=== PATIENT | female | born 1995 | race Caucasian/White ===

== ENCOUNTER 2019-02-20 02:16 | Inpatient (IN) | payer BC ==
[~2019-02-20] VITALS: Ht 165.1 cm; Wt 55.4 kg
--- NOTE | 2019-02-20 02:30 | NUR ---
ED Nurse Note: Pt walked into ED C/O Lower right abd pain 6/10 since 8 hours ago. pt is currently on menstual cycle. vomited x1 @ 30 min ago. ao4. nad. vss
--- NOTE | 2019-02-20 02:45 | NUR ---
ED Nurse Note: iv access established. blood and urine collected; sent down to lab.
[2019-02-20 02:55] LABS: BASOPHILS % (AUTO) 0.5 % (0.0-2.0); EOSINOPHILS % (AUTO) 0.5 % (0.0-3.0); HEMATOCRIT 42.3 % (37.0-47.0); MEAN CORPUSCULAR VOLUME 79 FL (80-99); PLATELET COUNT 282 K/UL (150-450); RED BLOOD COUNT 5.33 M/UL (4.20-5.40); RED CELL DISTRIBUTION WIDTH 10.7 % (11.6-14.8); WHITE BLOOD COUNT 10.7 K/UL (4.8-10.8)
[2019-02-20 02:57] VITALS: BP 115/77
[2019-02-20] MEDS ORDERED: Omnipaque-300 100ml vial INJ PRN (03:00)
[2019-02-20] MEDS ORDERED: Morphine Sulfate 4mg/ml Inj (IV USE ONLY) IVP ONE (03:00)
[2019-02-20 03:04] LABS: APPEARANCE,URINE SLIGHTLY CLOUDY; BILIRUBIN, URINE NEGATIVE (NEGATIVE); COLOR,URINE PALE YELLOW; GLUCOSE, URINE (UA) NEGATIVE (NEGATIVE); KETONES,URINE NEGATIVE (NEGATIVE); LEUKOCYTE ESTERASE ,URINE NEGATIVE (NEGATIVE); NITRITE,URINE NEGATIVE (NEGATIVE); PH,URINE 8 (4.5-8.0); PROTEIN,URINE NEGATIVE (NEGATIVE); UROBILINOGEN,URINE NORMAL MG/DL (0.0-1.0)
--- NOTE | 2019-02-20 03:07 | Emergency Room Report ---
History of Present Illness General Chief Complaint: Abdominal Pain Source: Patient Present Illness HPI Patient presents with complaints of right lower abdominal pain Triage notes 8 hours prior to arrival however patient is confirming that the pain started about 2 hours ago She had episode of vomiting as well reports that she is also on her menstrual cycle Denies any fevers denies any upper abdominal pain denies any previous abdominal surgeries denies any flank pain denies any dysuria frequency Patient was concerned about her appendix Allergies: Coded Allergies: No Known Allergies (Unverified , 02/20/19) Patient History Past Medical History: see triage record Last Menstrual Period: Current, started 02/19 Now: No : 0 Reviewed Nursing Documentation: PMH: Agreed; PSxH: Agreed Nursing Documentation-PMH Past Medical History: No Stated History Review of Systems All Other Systems: negative except mentioned in HPI Physical Exam Vital Signs Date Time Temp Pulse Resp B/P (MAP) Pulse Ox O2 Delivery O2 Flow Rate FiO2 02/20/19 02:27 98.2 84 20 115/77 (90) 98 Room Air Sp02 EP Interpretation: reviewed, normal General Appearance: mild distress - Appears uncomfortable in pain Head: normocephalic, atraumatic Eyes: bilateral eye PERRL, bilateral eye EOMI ENT: hearing grossly normal, normal pharynx, TMs + canals normal, uvula midline Neck: full range of motion, supple, no meningismus, no bony tend Respiratory: lungs clear, normal breath sounds, no rhonchi, no respiratory distress, no retraction, no accessory muscle use Cardiovascular #1: normal peripheral pulses, regular rate, rhythm, no edema, no gallop, no JVD, no murmur Gastrointestinal: normal bowel sounds, soft, no mass, no organomegaly, non- distended, no guarding, no hernia, no pulsatile mass, no rebound, tenderness - Palpable over the right lower quadrant however patient also has some discomfort in the right inguinal and suprapubic area as well Genitourinary: no CVA tenderness Musculoskeletal: normal inspection Neurologic: oriented x3, responsive, terra cotta setter III-XII nml as tested, motor strength/ tone normal, sensory intact Psychiatric: mood/affect normal Skin: no rash Lymphatic: normal inspection, no adenopathy Medical Decision Making Diagnostic Impression: Primary Impression: Appendicitis Additional Impression: Abdominal pain ER Course With the patient's history and examination, multiple differentials considered, including but not limited to , ectopic , ovarian torsion, gastritis, cholecystitis, pancreatitis, appendicitis Patient's initial work-up reveals a normal CBC count given the initial presentation ultrasound was obtained emergently The non destructive testing technician reported positive blood flow to both ovaries we are pending final dictation by radiology CAT scan reports that the appendix is enlarged at 7.5 mm they do not appreciate any obvious inflammatory changes There is also report of correlation for PID also fluid collection mass in the right adnexa Patient is not sexually active she is also currently on her menstrual cycle denies any fevers and denies any vaginal discharge Given these multiple findings patient does feel somewhat better however early appendicitis cannot be ruled out especially given the patient's early presentation after a few hours of onset Given these findings patient is admitted for further surgical consultation observation and inpatient care Labs Test 02/20/19 02:45 White Blood Count 10.7 K/UL (4.8-10.8) Red Blood Count 5.33 M/UL (4.20-5.40) Hemoglobin 14.0 G/DL (12.0-16.0) Hematocrit 42.3 % (37.0-47.0) Mean Corpuscular Volume 79 FL (80-99) Mean Corpuscular Hemoglobin 26.3 PG (27.0-31.0) Mean Corpuscular Hemoglobin Concent 33.1 G/DL (32.0-36.0) Red Cell Distribution Width 10.7 % (11.6-14.8) Platelet Count 282 K/UL (150-450) Mean Platelet Volume 6.2 FL (6.5-10.1) Neutrophils (%) (Auto) 64.0 % (45.0-75.0) Lymphocytes (%) (Auto) 26.0 % (20.0-45.0) Monocytes (%) (Auto) 9.0 % (1.0-10.0) Eosinophils (%) (Auto) 0.5 % (0.0-3.0) Basophils (%) (Auto) 0.5 % (0.0-2.0) Urine Color Pale yellow Urine Appearance Slightly cloudy Urine pH 8 (4.5-8.0) Urine Specific [place] 1.015 (1.005-1.035) Urine Protein Negative (NEGATIVE) Urine Glucose (UA) Negative (NEGATIVE) Urine Ketones Negative (NEGATIVE) Urine Blood 2+ (NEGATIVE) Urine Nitrite Negative (NEGATIVE) Urine Bilirubin Negative (NEGATIVE) Urine Urobilinogen Normal MG/DL (0.0-1.0) Urine Leukocyte Esterase Negative (NEGATIVE) Urine RBC 5-10 /HPF (0 - 2) Urine WBC 0-2 /HPF (0 - 2) Urine Squamous Epithelial Cells Few /LPF (NONE/OCC) Urine Amorphous Sediment Many /LPF (NONE) Urine Bacteria Moderate /HPF (NONE) Urine HCG, Qualitative Negative (NEGATIVE) Sodium Level 141 MMOL/L (136-145) Potassium Level 3.3 MMOL/L (3.5-5.1) Chloride Level 105 MMOL/L (98-107) Carbon Dioxide Level 29 MMOL/L (21-32) Anion Gap 8 mmol/L (5-15) Blood Urea Nitrogen 10 mg/dL (7-18) Creatinine 0.7 MG/DL (0.55-1.30) Estimat Glomerular Filtration Rate > 60 mL/min (>60) Glucose Level 104 MG/DL (74-106) Calcium Level 8.4 MG/DL (8.5-10.1) Total Bilirubin 0.3 MG/DL (0.2-1.0) Aspartate Amino Transf (AST/SGOT) 13 U/L (15-37) Alanine Aminotransferase (ALT/SGPT) 16 U/L (12-78) Alkaline Phosphatase 75 U/L (46-116) Total Protein 7.2 G/DL (6.4-8.2) Albumin 3.8 G/DL (3.4-5.0) Globulin 3.4 g/dL Albumin/Globulin Ratio 1.1 (1.0-2.7) Lipase 125 U/L (73-393) Rhythm Strip Diag. Results EP Interpretation: yes Rate: 77 Rhythm: NSR, no PVC's, no ectopy CT/MRI/US Diagnostic Results CT/MRI/US Diagnostic Results : Impression Pelvic ultrasound: Preliminary report states flow to both ovaries CT abdomen pelvis: Refer to report for full specifics however they report appendix enlarged at 7.5 mm, multi-fluid collection right adnexa evaluate for PID Last Vital Signs Date Time Temp Pulse Resp B/P (MAP) Pulse Ox O2 Delivery O2 Flow Rate FiO2 02/20/19 02:57 98.2 84 20 115/77 98 Room Air Status: improved Disposition: ADMITTED INPATIENT Condition: Serious Referrals: NOT CHOSEN IPA/,REFERRING (PCP) Paulette Bush DO Feb 20, 2019 03:07
[2019-02-20 03:08] LABS: ANION GAP 8 mmol/L (5-15); BLOOD UREA NITROGEN 10 mg/dL (7-18); CALCIUM 8.4 MG/DL (8.5-10.1); CARBON DIOXIDE 29 MMOL/L (21-32); CHLORIDE 105 MMOL/L (98-107); CREATININE 0.7 MG/DL (0.55-1.30); POTASSIUM 3.3 MMOL/L (3.5-5.1); SODIUM 141 MMOL/L (136-145)
[2019-02-20 03:13] LABS: ALANINE AMINOTRANSFERASE 16 U/L (12-78); ALBUMIN 3.8 G/DL (3.4-5.0); ALBUMIN/GLOBULIN RATIO 1.1 (1.0-2.7); ALKALINE PHOSPHATASE 75 U/L (46-116); ASPARTATE AMINO TRANSFERASE 13 U/L (15-37); BILIRUBIN,TOTAL 0.3 MG/DL (0.2-1.0)
--- NOTE | 2019-02-20 03:13 | NUR ---
ED Nurse Note: pt medicated; tolerated well. pt down to us with us tech.
--- NOTE | 2019-02-20 04:30 | NUR ---
ED Nurse Note: pt returned from imaging. nad. vss. reports relief from pain after medication. assisted to vane. repositioned for comfort.
--- NOTE | 2019-02-20 04:38 | NUR ---
ED Nurse Note: patient ambulated to bathroom with steady gait.
--- NOTE | 2019-02-20 04:51 | Diagnostic Imaging Report ---
Indication: Abdominal pain Technique: Continuous helical transaxial imaging of the abdomen and pelvis was obtained from the lung bases to the pubic symphysis during intravenous contrast administration. Coronal 2-D reformats were also obtained. Study obtained in a Siemens sensation [address] Automatic Exposure Control was utilized. Total Dose length Product (DLP): 617.[address] Dose Index Volume (CTDIvol): 11.6 mGy Comparison: None Findings: The lung bases are clear. The liver and spleen, kidneys and adrenal glands, gallbladder and pancreas appear unremarkable. There is no evidence of bowel obstruction. There is no abscess or significant free fluid identified. The uterus is present. Both ovaries are demonstrated. There is the suggestion of multiple follicles within both ovaries, which have been confirmed by ultrasound. There is a suggestion of a dominant right ovarian cyst measuring 2.3 x 1.6 cm. In addition the ovaries are prominent size. Urinary bladder is unremarkable. The appendix is normal with the air-filled lumen seen at the level of the right kidney. IMPRESSION: No acute findings. Normal appendix. Enlarged ovaries. Please refer to the pelvic ultrasound report. Evaluation was subsequently obtained. The CT scanner at [facility] is accredited by the [employer] and the scans are performed using dose optimization techniques as appropriate to a performed exam including Automatic Exposure control.
[2019-02-20 05:00] VITALS: BP 122/77
--- NOTE | 2019-02-20 05:25 | NUR ---
TRANSFER TO FLOOR: Patient transferred to MED SURG 416-1 as ordered, per MD LYNN. Report given to AUSTIN ARANDA. PATIENT IN STABLE CONDITION. BELONGINGS LIST COMPLETED WITH RECEIVING RN. PT TRANSFERRED TO FLOOR WITH ALL BELONGINGS VIA WHEELCHAIR WITH UX CONSULTANT.
--- NOTE | 2019-02-20 05:55 | NUR ---
NURSE NOTES: Admitted a 23 year old female, alert and oriented x4, ambulatory but came on the floor on wheelchair assisted by architectural technologist. IN pain of 09/18. Will contact MD for admission orders. Belongings checked. Oriented to room. Vital signs taken and recorded. Skin intact. Bed in lowest and lock engaged.
--- NOTE | 2019-02-20 06:49 | Diagnostic Imaging Report ---
Indication:Lower abdominal and pelvic pain Technique: Grayscale and duplex Doppler imaging of the pelvis performed utilizing a transabdominal and endovaginal scan. Comparison: None Findings: The uterus appears normal measuring 7.4 x 4.8 x 3.3 cm with the endometrium is about 5.5 mm in thickness. There is a mild amount of free fluid. The right ovary is enlarged measuring 5.5 x 3.5 x 3.4 cm for a total volume of approximately 30 cc. The left ovary is slightly prominent as well measuring 4.8 x 2.4 x 2.3 cm for volume of 14 cc. There are multiple small follicles within both ovaries. IMPRESSION: Prominent ovaries with the multiple small follicles suggestive of polycystic ovarian syndrome, which is mostly a clinical diagnosis. Clinical evaluation and correlation recommended.
[2019-02-20] MEDS: Piperacillin/Tazobactam 3.375 GM in NS 110 ML IVPB SCH ×3 (06:50→21:48)
--- NOTE | 2019-02-20 07:41 | NUR ---
HAND-OFF: Report given to ROSI Garcia.
[2019-02-20 07:59] VITALS: BP 96/55
[2019-02-20] MEDS: HYDROmorphone 1mg/ml Carpuject IVP PRN ×3 (08:06→20:17)
[2019-02-20] MEDS: Heparin 5000 units/ml inj SUBQ SCH ×2 (08:14→20:15)
[2019-02-20] MEDS: Pantoprazole Inj IVP SCH (08:14)
--- NOTE | 2019-02-20 08:30 | NUR ---
NURSE NOTES: PT AXOX4, CALM, RESTING IN BED. PT WAS GIVEN PRN DILAUDID ORDERED FOR SEVERE PAIN OF ABDOMEN. RN EDUCATED PT WAITING FOR DR BOO AND /ENTERTAINMENT REPORTER CONSULT. PT VERBALIZED UNDERSTANDING. PT EDUCATED ON FALL/SAFETY PRECAUTIONS. PT EDUCATED TO USE CALL LIGHT FOR ANY ASSISTANCE AND DO NOT WALK WHEN DIZZY. PT VERBALIZED UNDERSTANDING. WILL CONTINUE TO MONITOR.
--- NOTE | 2019-02-20 10:40 | NUR ---
*-* NO INSURANCE INFORMATION IN THE BAR UNABLE TO SEND CLINICALS OR REVIEWS *-*
[2019-02-20] MEDS: Doxycycline Monohydrate 100mg ORAL SCH ×2 (11:01→20:18)
[2019-02-20] MEDS: LORazepam Inj 2mg/ml 1ml IV PRN (11:01)
[2019-02-20] MEDS: Flonase Nasal Inhaler 16gm NASAL SCH (11:01)
[2019-02-20 11:44] VITALS: BP 92/49
--- NOTE | 2019-02-20 13:09 | NUR ---
*-* INSURANCE *-* ALL CLINICALS HAVE BEEN FAXED TO: Ref#[id number]
--- NOTE | 2019-02-20 13:54 | NUR ---
CASE MANAGEMENT:REVIEW 23YR OLD FEMALE WALKED IN TO OUR ER CC; ABDOMINAL PAIN. VOMITED X1 SI: POSSIBLE APPENDICITIS 98.3 84 20 115/77 98% ON RA WBC+10.7 K-3.3 IS;1L NS BOLUS X2 IV MORPHINE X2 IV ZOFRAN X2 URINE CX CT ABD/PELVIS US PELVIS URINE CX : TO MED/SURG [facility]
--- NOTE | 2019-02-20 14:45 | History and Physical Report ---
DATE OF ADMISSION: 02/20/2019 CHIEF COMPLAINT: Abdominal pain. HISTORY OF PRESENT ILLNESS: The patient is a 23-year-old female with no past medical history presented with complaints of sudden onset of abdominal pain that woke her in the evening. She had an episode of vomiting. Because of persistent pain, she presented to the emergency room. The patient denies any fevers or chills. She has had no diarrhea. She only had 1 episode of vomiting. She denies any melena or hematemesis. There is no bright red blood per rectum. On evaluation in the emergency room, the patient was afebrile. Laboratories were significant for white count of 11,000. CT scan of the abdomen showed a somewhat distended gallbladder and somewhat distended appendix as well as a multilocular fluid collection or mass in the right adnexa suspicious for PID. The patient has been started on antibiotic therapy. She is now admitted for further evaluation and care. PAST MEDICAL HISTORY: As above, none. PAST SURGICAL HISTORY: None. CURRENT MEDICATIONS: None. FAMILY HISTORY: None. SOCIAL HISTORY: Negative for tobacco or drugs. The patient drinks socially. PHYSICAL EXAMINATION: VITAL SIGNS: Temperature 98.2, pulse 79, respirations 20, blood pressure 122/77. GENERAL: The patient is well-developed, no apparent distress. HEART: Regular rate and rhythm. LUNGS: Clear. ABDOMEN: Soft. Mildly tender in the suprapubic region. There is mild guarding. EXTREMITIES: No clubbing, cyanosis, or edema. LABORATORY DATA: Reviewed. ASSESSMENT: This is a 23-year-old female with complaints of abdominal pain, possibly secondary to appendicitis or PID. PLAN: Intravenous antibiotic therapy. Surgical and Gynecology consultations. IV fluids. NPO until seen by consultants. Lauro Greer M.D. DR: GLEN JOB#: [id number] CC:
--- NOTE | 2019-02-20 15:01 | Consultation ---
History of Present Illness General Date patient seen: Feb 20, 2019 Reason for Hospitalization: Abdominal Pain Present Illness HPI This is a very pleasant 23-year-old female otherwise healthy who presented to the emerge department [facility] complaining of acutely worsening abdominal pain. States at midnight last night she began to have acute lower pelvic bilateral lower abdominal pain with associated nausea and one bout of heavy nonbloody emesis. States pain at that time was a 9 out of 10 sharp pain and currently a 6 out of 10. Currently no nausea or vomiting. No fever chills. Labs noted and otherwise stable. CT performed questionable dilated appendix as well as cystic ovaries. Surgery called to evaluate. Patient seen, patient evaluated, chart reviewed. Allergies: Coded Allergies: No Known Allergies (Unverified , 02/20/19) Patient History History Provided By: Patient Healthcare decision maker Resuscitation status Advanced Directive on File Past Medical/Surgical History Past Medical/Surgical History: (1) Abdominal pain Review of Systems Review of Symptoms General ROS: no weight loss or fever Psychological ROS: no depression or mood changes, no memory loss Ophthalmic ROS: no visual changes or eye irritation ENT ROS: no nasal congestion, hearing loss, dizziness Allergy and Immunology ROS: no allergic symptoms or urticaria Hematological and Lymphatic ROS: no swollen glands, unusual bleeding or bruising Endocrine ROS: no polyuria, polydipsia, weight changes, temperature intolerance Respiratory ROS: no cough, shortness of breath, or wheezing Cardiovascular ROS: no chest pain or dyspnea on exertion Gastrointestinal ROS: abdominal pain, bright red blood in stool. Musculoskeletal ROS: no myalgias or arthralgias Neurological ROS: no TIA or stroke symptoms Dermatological ROS: no new or changing skin lesions, rashes or pruritis Physical Exam Physical Exam General appearance: alert, cooperative, no distress, appears stated age Head: Normocephalic, without obvious abnormality, atraumatic Eyes: conjunctivae/corneas clear. PERRL, EOM's intact. Fundi benign Throat: Lips, mucosa, and tongue normal. Teeth and gums normal Neck: supple, symmetrical, trachea midline, no adenopathy, thyroid: not enlarged, symmetric, no tenderness/mass/nodules, no carotid bruit and no JVD Lungs: clear to auscultation bilaterally Heart: regular rate and rhythm, S1, S2 normal, no murmur, click, rub or gallop Abdomen: soft, RLQ/LLQ and pelvic tender with guarding and rebound. Bowel sounds normal. No masses, no organomegaly Extremities: extremities normal, atraumatic, no cyanosis or edema Pulses: 2+ and symmetric Skin: Skin color, texture, turgor normal. No rashes or lesions Neurologic: Grossly normal Last 24 Hour Vital Signs Date Time Temp Pulse Resp B/P (MAP) Pulse Ox O2 Delivery O2 Flow Rate FiO2 02/20/19 11:44 97.5 20 92/49 (63) 99 02/20/19 10:00 Room Air 02/20/19 09:00 Room Air 02/20/19 07:59 95.9 63 20 96/55 (69) 99 02/20/19 06:02 Room Air 02/20/19 05:20 98.2 79 20 122/77 99 Room Air 02/20/19 05:00 98.2 79 20 122/77 99 Room Air 02/20/19 03:22 98.2 02/20/19 02:57 98.2 84 20 115/77 98 Room Air 02/20/19 02:57 84 20 Room Air 02/20/19 02:27 98.2 84 20 115/77 (90) 98 Room Air Intake and Output 02/19/19 02/20/19 19:00 07:00 # Voids 1 Laboratory Tests Test 02/20/19 02:45 White Blood Count 10.7 K/UL (4.8-10.8) Red Blood Count 5.33 M/UL (4.20-5.40) Hemoglobin 14.0 G/DL (12.0-16.0) Hematocrit 42.3 % (37.0-47.0) Mean Corpuscular Volume 79 FL (80-99) L Mean Corpuscular Hemoglobin 26.3 PG (27.0-31.0) L Mean Corpuscular Hemoglobin Concent 33.1 G/DL (32.0-36.0) Red Cell Distribution Width 10.7 % (11.6-14.8) L Platelet Count 282 K/UL (150-450) Mean Platelet Volume 6.2 FL (6.5-10.1) L Neutrophils (%) (Auto) 64.0 % (45.0-75.0) Lymphocytes (%) (Auto) 26.0 % (20.0-45.0) Monocytes (%) (Auto) 9.0 % (1.0-10.0) Eosinophils (%) (Auto) 0.5 % (0.0-3.0) Basophils (%) (Auto) 0.5 % (0.0-2.0) Urine Color Pale yellow Urine Appearance Slightly cloudy Urine pH 8 (4.5-8.0) Urine Specific [place] 1.015 (1.005-1.035) Urine Protein Negative (NEGATIVE) Urine Glucose (UA) Negative (NEGATIVE) Urine Ketones Negative (NEGATIVE) Urine Blood 2+ (NEGATIVE) H Urine Nitrite Negative (NEGATIVE) Urine Bilirubin Negative (NEGATIVE) Urine Urobilinogen Normal MG/DL (0.0-1.0) Urine Leukocyte Esterase Negative (NEGATIVE) Urine RBC 5-10 /HPF (0 - 2) H Urine WBC 0-2 /HPF (0 - 2) Urine Squamous Epithelial Cells Few /LPF (NONE/OCC) Urine Amorphous Sediment Many /LPF (NONE) H Urine Bacteria Moderate /HPF (NONE) H Urine HCG, Qualitative Negative (NEGATIVE) Sodium Level 141 MMOL/L (136-145) Potassium Level 3.3 MMOL/L (3.5-5.1) L Chloride Level 105 MMOL/L (98-107) Carbon Dioxide Level 29 MMOL/L (21-32) Anion Gap 8 mmol/L (5-15) Blood Urea Nitrogen 10 mg/dL (7-18) Creatinine 0.7 MG/DL (0.55-1.30) Estimat Glomerular Filtration Rate > 60 mL/min (>60) Glucose Level 104 MG/DL (74-106) Calcium Level 8.4 MG/DL (8.5-10.1) L Total Bilirubin 0.3 MG/DL (0.2-1.0) Aspartate Amino Transf (AST/SGOT) 13 U/L (15-37) L Alanine Aminotransferase (ALT/SGPT) 16 U/L (12-78) Alkaline Phosphatase 75 U/L (46-116) Total Protein 7.2 G/DL (6.4-8.2) Albumin 3.8 G/DL (3.4-5.0) Globulin 3.4 g/dL Albumin/Globulin Ratio 1.1 (1.0-2.7) Lipase 125 U/L (73-393) Height (Feet): 5 Height (Inches): 5.00 Weight (Pounds): 115 Medications Current Medications Medications (Trade) Dose Ordered Sig/Clotilde Route PRN Reason Start Time Stop Time Status Last Admin Dose Admin Dextrose/ Electrolytes 1,000 ml @ 100 mls/hr Q10H IV 02/20/19 07:00 03/22/19 06:59 02/20/19 07:18 Doxycycline Monohydrate (Doxycycline Monohydrate) 100 mg EVERY 12 HOURS ORAL 02/20/19 10:45 02/27/19 10:44 02/20/19 11:01 Fluticasone Propionate (Flonase) 2 spray DAILY NASAL 02/20/19 10:30 03/22/19 10:29 02/20/19 11:01 Heparin Sodium (Porcine) (Heparin 5000 units/ml) 5,000 units EVERY 12 HOURS SUBQ 02/20/19 09:00 03/22/19 08:59 Hydromorphone HCl (Dilaudid) 1 mg Q4H PRN IVP For Pain 02/20/19 06:15 02/27/19 06:14 02/20/19 13:35 Iohexol (OMNIPAQUE-300 100ml) 100 ml NOW PRN INJ Radiology Procedure 02/20/19 03:00 02/22/19 02:47 Lorazepam (Ativan 2mg/ml 1ml) 1 mg Q4H PRN IV For Anxiety 02/20/19 10:30 02/27/19 10:29 02/20/19 11:01 Ondansetron HCl (Zofran) 4 mg Q4H PRN IVP Nausea & Vomiting 02/20/19 06:15 03/22/19 06:14 02/20/19 13:35 Pantoprazole (Protonix) 40 mg DAILY IVP 02/20/19 09:00 03/22/19 08:59 02/20/19 08:14 Piperacillin Sod/ Tazobactam Sod 3.375 gm/Sodium Chloride 110 ml @ 27.5 mls/hr EVERY 8 HOURS IVPB 02/20/19 06:15 02/25/19 06:14 02/20/19 13:31 Assessment/Plan Problem List: (1) Abdominal pain Assessment & Plan: 23-year-old female with abdominal pain. Nausea and emesis. Labs okay. CT as noted below. I personally reviewed the CT scan myself and with the radiologist. I do not believe the patient has appendicitis as the appendix looks fairly normal on the scan. She does have bilateral ovarian cysts and significantly enlarged ovaries. On examination bilateral lower quadrant and pelvic discomfort with rebound and guarding. Findings likely suggestive of gynecological etiology of pain. Currently no acute General surgery intervention planned Okay for diet from surgical standpoint. Will await for RN ASSESSMENT evaluation. Pain control. Trend labs We will follow with recommendations Thank you for allowing me to participate in patient's care ICD Codes: R10.9 - Unspecified abdominal pain SNOMED: [id number] Gulshan Keenan Feb 20, 2019 15:01
--- NOTE | 2019-02-20 15:45 | Consultation ---
DATE OF CONSULTATION: 02/20/2019 INFECTIOUS DISEASE CONSULTATION CONSULTING PHYSICIAN: Shagufta Hawkins M.D. REFERRING PHYSICIAN: Lauro Greer M.D. REASON FOR CONSULTATION: Possible appendicitis. HISTORY OF PRESENT ILLNESS: This is a 23-year-old lady with history of deviated nasal septum, status post surgery who comes in with abdominal pain on the right side along with nausea and vomiting. She is also in her menstrual cycle and Infectious Disease consultation has been obtained for possible appendicitis. PAST MEDICAL HISTORY: History of deviated nasal septum, status post surgery. SOCIAL HISTORY: She vapes. She drinks alcohol socially. She smokes marijuana. FAMILY HISTORY: Her grandfather had heart disease. REVIEW OF SYSTEMS: RESPIRATORY: She had fever and chills. No cough. No shortness of breath or chest pain. CARDIAC: No chest pain. No palpitations. No dizziness. No syncope. GASTROINTESTINAL: She had nausea and vomiting. She complained of right-sided abdominal pain. No diarrhea. MEDICATIONS: As an inpatient, she is on Tylenol, Flonase, Protonix, subcutaneous heparin, Zosyn, Dilaudid, Zofran, Omnipaque. ALLERGIES: No known drug allergies. PHYSICAL EXAMINATION: VITAL SIGNS: Temperature 95.9, T-max of 98.2, pulse 63, respiratory rate 20, and blood pressure 96/55. O2 saturation of 99%. HEENT: Pupils are equally reactive to light and accommodation. Mouth appears clean without thrush. NECK: Supple. No adenopathy. No JVD. CARDIOVASCULAR: Regular rate and rhythm. No murmurs. LUNGS: Clear to auscultation bilaterally. No crackles. No wheezes. ABDOMEN: Soft. Right lower quadrant tenderness noted as well as suprapubic tenderness. No organomegaly. EXTREMITIES: No cyanosis, no clubbing, no edema. LABORATORY AND DIAGNOSTIC DATA: White count 10.7, hemoglobin 14, hematocrit 42.3, MCV 79, and platelet count 282,000. Neutrophils of 64%. Sodium 141, potassium 3.3, chloride 105, bicarb 29, BUN 10, and creatinine 0.7. Glucose 104. Calcium 8.4. Total bilirubin 0.3, AST 13, ALT 16, and alkaline phosphatase 75. Total protein 7.2, albumin 3.8. Lipase of 125. UA showing 0 to [address] abdomen and pelvis showing no acute findings. Normal appendix. Enlarged ovaries noted. Abdominopelvic ultrasound showing normal uterus, no ovarian torsion, suggestive of polycystic ovarian syndrome. No evidence of acute abnormality. ASSESSMENT: This is a 23-year-old lady with history of deviated nasal septum, who comes in with abdominal pain, nausea, vomiting, fever, and chills and is found to have, 1. Polycystic ovary. 2. Would like to rule out PID, although this is unlikely. The patient states she is not sexually active. PLAN: 1. Continue Zosyn for now. 2. We will add doxycycline. 3. We will follow up the patient clinically. I would like to thank Dr. Greer for this consultation. Shagufta Hawkins M.D. DR: TAMEKA JOB#: [id number] CC:
[2019-02-20 16:00] VITALS: BP 89/49
--- NOTE | 2019-02-20 16:30 | Consultation ---
Consult Note Consult Note GYNECOLOGY CONSULT NOTE CC: Abdominal pain, clinical picture concerning for PID - *NOTE: THE CONTENT OF THIS NOTE AND THE PATIENT'S MEDICAL CONDITION ARE TO BE KEPT CONFIDENTIAL.* HPI: Patient is a 23yo G0 who was admitted with acute onset lower abdominal pain that woke her from sleep and was accompanied by nausea and vomiting. She started her period yesterday and thought the pain was normal cramping, however her pain was 10/10 and was made worse with ambulation which has never happened. She denies fever or chills. No chest pain or shortness of breath. PMH: Denies PSH: Deviated septum (2016) Meds: None Allergis: None OBHx: G0 GYNHx: lmp 02/19/19. Last Pap 2017, diagnosed with Chlamydia in 2017 which did not resolve on MIGUEL. Patient did not have confirmatory negative testing. No other hx of STI. No known cysts or fibroids. SocHx: Lives with roommate. Currently in same-sex relationship x 2y, monogamous. Previously dated men. No recent male partners. FamHx: Grandfather with [place], no other notable family history Vitals: Reviewed, wnl. Afebrile Exam: Gen: NAD Neuro: Intact grossly HEENT: OP clear, MMM CV: No tachycardia Pulm: No increased work of breathing Abd: soft, tender to palpation in lower abdomen, +guarding Pelvic: NEFG, no masses or lesions. Normal discharge c/w menses, light flow. + CMT, +uterine tenderness and +tender in anterior fornix. Ext: No calf TTP MSK: FROM Labs: Test 02/20/19 02:45 White Blood Count 10.7 K/UL (4.8-10.8) Red Blood Count 5.33 M/UL (4.20-5.40) Hemoglobin 14.0 G/DL (12.0-16.0) Hematocrit 42.3 % (37.0-47.0) Mean Corpuscular Volume 79 FL (80-99) Mean Corpuscular Hemoglobin 26.3 PG (27.0-31.0) Mean Corpuscular Hemoglobin Concent 33.1 G/DL (32.0-36.0) Red Cell Distribution Width 10.7 % (11.6-14.8) Platelet Count 282 K/UL (150-450) Mean Platelet Volume 6.2 FL (6.5-10.1) Neutrophils (%) (Auto) 64.0 % (45.0-75.0) Lymphocytes (%) (Auto) 26.0 % (20.0-45.0) Monocytes (%) (Auto) 9.0 % (1.0-10.0) Eosinophils (%) (Auto) 0.5 % (0.0-3.0) Basophils (%) (Auto) 0.5 % (0.0-2.0) Urine Color Pale yellow Urine Appearance Slightly cloudy Urine pH 8 (4.5-8.0) Urine Specific [place] 1.015 (1.005-1.035) Urine Protein Negative (NEGATIVE) Urine Glucose (UA) Negative (NEGATIVE) Urine Ketones Negative (NEGATIVE) Urine Blood 2+ (NEGATIVE) Urine Nitrite Negative (NEGATIVE) Urine Bilirubin Negative (NEGATIVE) Urine Urobilinogen Normal MG/DL (0.0-1.0) Urine Leukocyte Esterase Negative (NEGATIVE) Urine RBC 5-10 /HPF (0 - 2) Urine WBC 0-2 /HPF (0 - 2) Urine Squamous Epithelial Cells Few /LPF (NONE/OCC) Urine Amorphous Sediment Many /LPF (NONE) Urine Bacteria Moderate /HPF (NONE) Urine HCG, Qualitative Negative (NEGATIVE) Sodium Level 141 MMOL/L (136-145) Potassium Level 3.3 MMOL/L (3.5-5.1) Chloride Level 105 MMOL/L (98-107) Carbon Dioxide Level 29 MMOL/L (21-32) Anion Gap 8 mmol/L (5-15) Blood Urea Nitrogen 10 mg/dL (7-18) Creatinine 0.7 MG/DL (0.55-1.30) Estimat Glomerular Filtration Rate > 60 mL/min (>60) Glucose Level 104 MG/DL (74-106) Calcium Level 8.4 MG/DL (8.5-10.1) Total Bilirubin 0.3 MG/DL (0.2-1.0) Aspartate Amino Transf (AST/SGOT) 13 U/L (15-37) Alanine Aminotransferase (ALT/SGPT) 16 U/L (12-78) Alkaline Phosphatase 75 U/L (46-116) Total Protein 7.2 G/DL (6.4-8.2) Albumin 3.8 G/DL (3.4-5.0) Globulin 3.4 g/dL Albumin/Globulin Ratio 1.1 (1.0-2.7) Lipase 125 U/L (73-393) Imaging: Pelvic US: Findings: The uterus appears normal measuring 7.4 x 4.8 x 3.3 cm with the endometrium is about 5.5 mm in thickness. There is a mild amount of free fluid. The right ovary is enlarged measuring 5.5 x 3.5 x 3.4 cm for a total volume of approximately 30 cc. The left ovary is slightly prominent as well measuring 4.8 x 2.4 x 2.3 cm for volume of 14 cc. There are multiple small follicles within both ovaries. IMPRESSION: Prominent ovaries with the multiple small follicles suggestive of polycystic ovarian syndrome, which is mostly a clinical diagnosis. Clinical evaluation and correlation recommended. CT A/P: Findings: The lung bases are clear. The liver and spleen, kidneys and adrenal glands, gallbladder and pancreas appear unremarkable. There is no evidence of bowel obstruction. There is no abscess or significant free fluid identified. The uterus is present. Both ovaries are demonstrated. There is the suggestion of multiple follicles within both ovaries, which have been confirmed by ultrasound. There is a suggestion of a dominant right ovarian cyst measuring 2.3 x 1.6 cm. In addition the ovaries are prominent size. Urinary bladder is unremarkable. The appendix is normal with the air-filled lumen seen at the level of the right kidney. IMPRESSION: No acute findings. Normal appendix. Enlarged ovaries. Please refer to the pelvic ultrasound report. Evaluation was subsequently obtained. Assessment/Plan 23yo with clinical picture concerning for PID - Patient's only risk factor is a prior Chlamydial infection that may have not resolved in 2017 - She is currently in a monogamous relationship - Testing for Gonorrhea and Chlamydia added on to urine sample obtained on admission - Recommend empiric treatment for PID - Cefoxitin 2g IV q6 OR Cefotetan 2g IV q12 AND Doxycycline 100mg PO or IV q12h - Once patient feels clinically improved and pain is manageable on PO medications, recommend D/C home with Rx for Doxycycline PO 100mg BID x 14d AND Metronidazole 500mg PO BID x 14d - Recommend follow up with CIRCUIT [employer] ASSEMBLER in 1-2 weeks - my information was provided to the patient and recommend she make an appointment to follow up with me in my office in 1-2w - Regular diet OK Thank you for allowing me to participate in the care of this patient Feel free to contact me with any questions or concerns at [phone] Signed: MD Tho Hurley Carla M.D. Feb 20, 2019 16:30
--- NOTE | 2019-02-20 19:30 | NUR ---
NURSE NOTES: Received patient in bed. Mother at bedside. A/O x4. IV in the right AC is patent with no redness or swelling. Patient is verbal and compliant. Call light placed within reach.
[2019-02-20 20:00] VITALS: BP 95/58
--- NOTE | 2019-02-20 20:05 | NUR ---
HAND-OFF: Report given to Ella TORIBIO RN.
[2019-02-21] VITALS: BP 90/52
[2019-02-21] MEDS: HYDROmorphone 1mg/ml Carpuject IVP PRN ×2 (03:30→08:08)
[2019-02-21 04:00] VITALS: BP 105/62
[2019-02-21] MEDS: LORazepam Inj 2mg/ml 1ml IV PRN ×2 (05:15→09:10)
[2019-02-21] MEDS: Piperacillin/Tazobactam 3.375 GM in NS 110 ML IVPB SCH (05:16)
[2019-02-21 06:31] LABS: BASOPHILS % (AUTO) 0.7 % (0.0-2.0); HEMATOCRIT 34.3 % (37.0-47.0); HEMOGLOBIN 11.3 G/DL (12.0-16.0); LYMPHOCYTES % (AUTO) 30.3 % (20.0-45.0); MEAN CORPUSCULAR VOLUME 81 FL (80-99); MONOCYTES % (AUTO) 11.5 % (1.0-10.0); NEUTROPHILS % (AUTO) 56.6 % (45.0-75.0); PLATELET COUNT 209 K/UL (150-450); RED BLOOD COUNT 4.22 M/UL (4.20-5.40); RED CELL DISTRIBUTION WIDTH 10.9 % (11.6-14.8)
[2019-02-21 06:54] LABS: ALANINE AMINOTRANSFERASE 16 U/L (12-78); ALKALINE PHOSPHATASE 56 U/L (46-116); ANION GAP 9 mmol/L (5-15); ASPARTATE AMINO TRANSFERASE 12 U/L (15-37); BILIRUBIN,TOTAL 0.4 MG/DL (0.2-1.0); BLOOD UREA NITROGEN 12 mg/dL (7-18); CALCIUM 7.8 MG/DL (8.5-10.1); CARBON DIOXIDE 25 MMOL/L (21-32); CHLORIDE 107 MMOL/L (98-107); CREATININE 0.8 MG/DL (0.55-1.30); POTASSIUM 3.8 MMOL/L (3.5-5.1); SODIUM 141 MMOL/L (136-145)
--- NOTE | 2019-02-21 07:35 | NUR ---
HAND-OFF: Report given to ROSI Garcia.
[2019-02-21] MEDS ORDERED: DOXYCYCLINE HY100 M2 PO (07:37)
[2019-02-21] MEDS ORDERED: NORCO 10-325 T1 EACH ORAL (07:37)
[2019-02-21] MEDS ORDERED: METRONIDAZOLE500 MG ORAL (07:37)
[2019-02-21 08:00] VITALS: BP 102/64
[2019-02-21] MEDS: Doxycycline Monohydrate 100mg ORAL SCH (08:07)
[2019-02-21] MEDS: Flonase Nasal Inhaler 16gm NASAL SCH (08:07)
[2019-02-21] MEDS: Pantoprazole Inj IVP SCH (08:07)
[2019-02-21] MEDS: Heparin 5000 units/ml inj SUBQ SCH (09:00)
--- NOTE | 2019-02-21 10:15 | NUR ---
NURSE NOTES: PT EDUCATED ON DISCHARGE AND AGREES. EDUCATED ON DISCHARGE MEDICATIONS AND WHEN TO CALL FOR EMERGENCY SERVICES. PT WAS INSTRUCTED TO FOLLOW UP WITH DR GOYAL OR GYNECOLOGY IN 1-2 WEEKS. PT WAS GIVEN DR GOYAL' ADDRESS AND OFFICE NUMBER TO SET UP APPOINTMENT. PT VERBALIZED UNDERSTANDING. PT STATED SHE WILL FILL HER PRESCRIPTIONS AT HER PHARMACY OF CHOICE. BELONGINGS CHECKED AT BEDSIDE, ALL ACCOUNTED. PT DISCHARGED IN STABLE CONDITION. MOTHER PICKED UP PT VIA PRIVATE VEHICLE.
--- NOTE | 2019-02-21 10:32 | Infectious Diseases Prog Note ---
Assessment/Plan Assessment/Plan antibiotics : zosyn, doxycycline A 1. ? PID 2. ovarian cyst P 1. plan per OBGYN for doxycycline, flagyl 2 weeks 2. d.c planned 3. d/c zosyn Subjective Constitutional: Denies: fever, chills Respiratory: Denies: shortness of breath, dry cough Gastrointestinal/Abdominal: Denies: nausea, vomiting, diarrhea Musculoskeletal: Reports: pain - decreased in abdomen Allergies: Coded Allergies: No Known Allergies (Unverified , 02/20/19) Objective Vital Signs Last 24 Hour Vital Signs Date Time Temp Pulse Resp B/P (MAP) Pulse Ox O2 Delivery O2 Flow Rate FiO2 02/21/19 09:00 Room Air 02/21/19 08:17 Room Air 02/21/19 08:00 98.0 75 18 102/64 (77) 100 02/21/19 04:00 98.2 70 17 105/62 (76) 100 02/21/19 00:00 98.1 68 17 90/52 (65) 100 02/20/19 21:00 Room Air 02/20/19 20:00 97.3 59 18 95/58 (70) 100 02/20/19 16:00 98.1 65 19 89/49 (62) 99 02/20/19 11:44 97.5 20 92/49 (63) 99 Height (Feet): 5 Height (Inches): 5.00 Weight (Pounds): 122 Microbiology Date/Time Source Procedure Growth Status 02/20/19 02:45 Urine,Clean Catch Urine Culture - Preliminary NO GROWTH AFTER 24 HOURS Resulted Laboratory Tests Test 02/21/19 05:10 White Blood Count 8.0 K/UL (4.8-10.8) Red Blood Count 4.22 M/UL (4.20-5.40) Hemoglobin 11.3 G/DL (12.0-16.0) L Hematocrit 34.3 % (37.0-47.0) L Mean Corpuscular Volume 81 FL (80-99) Mean Corpuscular Hemoglobin 26.8 PG (27.0-31.0) L Mean Corpuscular Hemoglobin Concent 33.0 G/DL (32.0-36.0) Red Cell Distribution Width 10.9 % (11.6-14.8) L Platelet Count 209 K/UL (150-450) Mean Platelet Volume 6.8 FL (6.5-10.1) Neutrophils (%) (Auto) 56.6 % (45.0-75.0) Lymphocytes (%) (Auto) 30.3 % (20.0-45.0) Monocytes (%) (Auto) 11.5 % (1.0-10.0) H Eosinophils (%) (Auto) 1.0 % (0.0-3.0) Basophils (%) (Auto) 0.7 % (0.0-2.0) Erythrocyte Sedimentation Rate 4 MM/HR (0-20) Sodium Level 141 MMOL/L (136-145) Potassium Level 3.8 MMOL/L (3.5-5.1) Chloride Level 107 MMOL/L (98-107) Carbon Dioxide Level 25 MMOL/L (21-32) Anion Gap 9 mmol/L (5-15) Blood Urea Nitrogen 12 mg/dL (7-18) Creatinine 0.8 MG/DL (0.55-1.30) Estimat Glomerular Filtration Rate > 60 mL/min (>60) Glucose Level 120 MG/DL (74-106) H Calcium Level 7.8 MG/DL (8.5-10.1) L Total Bilirubin 0.4 MG/DL (0.2-1.0) Aspartate Amino Transf (AST/SGOT) 12 U/L (15-37) L Alanine Aminotransferase (ALT/SGPT) 16 U/L (12-78) Alkaline Phosphatase 56 U/L (46-116) C-Reactive Protein, Quantitative 4.6 mg/dL (0.00-0.90) H Total Protein 6.1 G/DL (6.4-8.2) L Albumin 3.0 G/DL (3.4-5.0) L Globulin 3.1 g/dL Albumin/Globulin Ratio 1.0 (1.0-2.7) Current Medications Medications (Trade) Dose Ordered Sig/Clotilde Route PRN Reason Start Time Stop Time Status Last Admin Dose Admin Dextrose/ Electrolytes 1,000 ml @ 100 mls/hr Q10H IV 02/20/19 07:00 03/22/19 06:59 02/20/19 17:31 Doxycycline Monohydrate (Doxycycline Monohydrate) 100 mg EVERY 12 HOURS ORAL 02/20/19 10:45 02/27/19 10:44 02/21/19 08:07 Fluticasone Propionate (Flonase) 2 spray DAILY NASAL 02/20/19 10:30 03/22/19 10:29 02/21/19 08:07 Heparin Sodium (Porcine) (Heparin 5000 units/ml) 5,000 units EVERY 12 HOURS SUBQ 02/20/19 09:00 03/22/19 08:59 02/20/19 20:15 Hydromorphone HCl (Dilaudid) 1 mg Q4H PRN IVP For Pain 02/20/19 06:15 02/27/19 06:14 02/21/19 08:08 Iohexol (OMNIPAQUE-300 100ml) 100 ml NOW PRN INJ Radiology Procedure 02/20/19 03:00 02/22/19 02:47 Lorazepam (Ativan 2mg/ml 1ml) 1 mg Q4H PRN IV For Anxiety 02/20/19 10:30 02/27/19 10:29 02/21/19 09:10 Ondansetron HCl (Zofran) 4 mg Q4H PRN IVP Nausea & Vomiting 02/20/19 06:15 03/22/19 06:14 02/20/19 20:18 Pantoprazole (Protonix) 40 mg DAILY IVP 02/20/19 09:00 03/22/19 08:59 02/21/19 08:07 Piperacillin Sod/ Tazobactam Sod 3.375 gm/Sodium Chloride 110 ml @ 27.5 mls/hr EVERY 8 HOURS IVPB 02/20/19 06:15 02/25/19 06:14 02/21/19 05:16 Shagufta Hawkins MD Feb 21, 2019 10:32
--- NOTE | 2019-02-21 16:00 | Surgery Progress Note ---
Surgery Progress Note Subjective Symptoms: improved, tolerating diet, voiding well, passing flatus, pain decreased Objective Last 24 Hour Vital Signs Date Time Temp Pulse Resp B/P (MAP) Pulse Ox O2 Delivery O2 Flow Rate FiO2 02/21/19 09:00 Room Air 02/21/19 08:17 Room Air 02/21/19 08:00 98.0 75 18 102/64 (77) 100 02/21/19 04:00 98.2 70 17 105/62 (76) 100 02/21/19 00:00 98.1 68 17 90/52 (65) 100 02/20/19 21:00 Room Air 02/20/19 20:00 97.3 59 18 95/58 (70) 100 I&O Intake and Output 02/20/19 02/21/19 19:00 07:00 Intake Total 565.0 ml 1137.5 ml Balance 565.0 ml 1137.5 ml Intake Oral 400 ml IV Total 565.0 ml 737.5 ml # Voids 6 # Bowel Movements 1 Cardiovascular: RSR Respiratory: clear Abdomen: soft, flat, tenderness - decreased, present bowel sounds Extremities: no edema, no tenderness, no cyanosis Laboratory Tests Test 02/21/19 05:10 White Blood Count 8.0 K/UL (4.8-10.8) Red Blood Count 4.22 M/UL (4.20-5.40) Hemoglobin 11.3 G/DL (12.0-16.0) L Hematocrit 34.3 % (37.0-47.0) L Mean Corpuscular Volume 81 FL (80-99) Mean Corpuscular Hemoglobin 26.8 PG (27.0-31.0) L Mean Corpuscular Hemoglobin Concent 33.0 G/DL (32.0-36.0) Red Cell Distribution Width 10.9 % (11.6-14.8) L Platelet Count 209 K/UL (150-450) Mean Platelet Volume 6.8 FL (6.5-10.1) Neutrophils (%) (Auto) 56.6 % (45.0-75.0) Lymphocytes (%) (Auto) 30.3 % (20.0-45.0) Monocytes (%) (Auto) 11.5 % (1.0-10.0) H Eosinophils (%) (Auto) 1.0 % (0.0-3.0) Basophils (%) (Auto) 0.7 % (0.0-2.0) Erythrocyte Sedimentation Rate 4 MM/HR (0-20) Sodium Level 141 MMOL/L (136-145) Potassium Level 3.8 MMOL/L (3.5-5.1) Chloride Level 107 MMOL/L (98-107) Carbon Dioxide Level 25 MMOL/L (21-32) Anion Gap 9 mmol/L (5-15) Blood Urea Nitrogen 12 mg/dL (7-18) Creatinine 0.8 MG/DL (0.55-1.30) Estimat Glomerular Filtration Rate > 60 mL/min (>60) Glucose Level 120 MG/DL (74-106) H Calcium Level 7.8 MG/DL (8.5-10.1) L Total Bilirubin 0.4 MG/DL (0.2-1.0) Aspartate Amino Transf (AST/SGOT) 12 U/L (15-37) L Alanine Aminotransferase (ALT/SGPT) 16 U/L (12-78) Alkaline Phosphatase 56 U/L (46-116) C-Reactive Protein, Quantitative 4.6 mg/dL (0.00-0.90) H Total Protein 6.1 G/DL (6.4-8.2) L Albumin 3.0 G/DL (3.4-5.0) L Globulin 3.1 g/dL Albumin/Globulin Ratio 1.0 (1.0-2.7) Plan Problems: (1) Abdominal pain Assessment & Plan: 23-year-old female with abdominal pain. Nausea and emesis. Labs okay. CT as noted below. I personally reviewed the CT scan myself and with the radiologist. I do not believe the patient has appendicitis as the appendix looks fairly normal on the scan. She does have bilateral ovarian cysts and significantly enlarged ovaries. On examination bilateral lower quadrant and pelvic discomfort with rebound and guarding. Findings likely suggestive of gynecological etiology of pain. Currently no acute General surgery intervention planned Okay for diet from surgical standpoint. PEDIATRIC OCCUPATIONAL THERAPIST note noted okay to d/c with outpatient f/u Pain control. Trend labs We will follow with recommendations Thank you for allowing me to participate in patient's care Gulshan Keenan Feb 21, 2019 16:00
--- NOTE | 2019-02-22 01:01 | Discharge Summary ---
DATE OF ADMISSION: 02/20/2019 DATE OF DISCHARGE: 02/21/2019 ADMISSION DIAGNOSES: 1. Abdominal pain. 2. Possible appendicitis versus pelvic inflammatory disease. DISCHARGE DIAGNOSES: 1. Abdominal pain. 2. Possible appendicitis versus pelvic inflammatory disease. HOSPITAL COURSE: The patient is a pleasant female admitted with complaints of severe abdominal pain. She had a CAT scan that showed a mildly distended appendix. She also had signs of possible pelvic inflammatory disease on her CAT scan. She was seen by Surgery. The patient was felt not to have appendicitis. Gynecology did see the patient. Cultures were ordered for chlamydia and gonorrhea, but were pending on discharge. The patient felt better after a day of IV antibiotic therapy. She will be discharged home on empiric treatment for pelvic inflammatory disease. She will follow up with her cake inspector in one to two weeks. She has been instructed to return for any worsening fevers or chills or abdominal pain. DISCHARGE MEDICATIONS: Please see discharge medication list for discharge medications. DIET: Regular. ACTIVITIES: Ad [place]. Lauro Greer M.D. DR: PB JOB#: [id number] CC:
== END 2019-02-21 11:05 | disposition home or self-care (01) | DRG 395 ==
LOC: EMR 02:56 → 4E 05:10 → EDBEDREQ 05:15 → EMR 05:20 → 4E 05:54
DX: K37 Unspecified appendicitis (principal); N73.9 Female pelvic inflammatory disease, unspecified; E28.2 Polycystic ovarian syndrome
CPT/HCPCS: 36415; 74177; 76830; 76856; 80053; 81003; 81025; 83690; 85025; 85651; 86140; 87086; 87491; 87590; 96361; 96365; 96375; 99285; J2405; J7030